=== PATIENT | male | born 1970 | race Caucasian/White ===

== ENCOUNTER 2017-06-11 19:35 | Inpatient (IN) | payer OTHER ==
[~2017-06-11] VITALS: Ht 152.4 cm; Wt 61.9 kg
[2017-06-11] MEDS ORDERED: CEFDINIR300 MG PO (19:47)
[2017-06-11] MEDS ORDERED: QVAR 80 MCG IN7.3 GM IH (19:47)
[2017-06-11] MEDS ORDERED: PROAIR HFA8.5 GM IH (19:47)
[2017-06-11] MEDS ORDERED: MUCINEX D ER T1 EACH PO (19:48)
[2017-06-11 20:25] LABS: BASOPHIL COUNT 0.1 K/uL (0-0.1); EOSINOPHIL (%) 0.9 % (0-5); EOSINOPHIL COUNT 0.1 K/uL (0-0.3); HEMATOCRIT 49.6 % (38.0-50.0); IMMATURE GRANULOCYTE (%) 0.6 % (0.0-0.7); IMMATURE GRANULOCYTE COUNT 0.1 K/uL; LYMPHOCYTE COUNT 1.2 K/uL (1.0-2.8); MCH 28.9 PG (29.0-34.0); MCHC 33.3 G/DL (30.0-36.0); MCV 86.9 FL (86-99); MEAN PLAT.VOLUME 9.9 uM^3 (9.0-12.4); MONOCYTE (%) 7.5 % (3-12); MONOCYTE COUNT 0.9 K/uL (0-0.8); NEUTROPHIL (%) 80.5 % (45-76); PLATELET COUNT 351 K/uL (156-360); RBC DIS.WIDTH-CV 12.6 % (11.8-14.6); RBC DIS.WIDTH-SD 39.6 % (39-53); RED BLOOD COUNT 5.71 M/uL (4.00-5.50); WHITE BLOOD COUNT 12.4 K/uL (4.1-10.2)
[2017-06-11 20:33] LABS: CHLORIDE 104 mEq/L (99-109); SODIUM 141 mEq/L (136-147)
[2017-06-11 20:35] LABS: GLUCOSE 111 mg/dL (70-99)
[2017-06-11 20:36] LABS: ANION GAP 15 MEQ/L (2-14)
[2017-06-11 20:37] LABS: TOTAL BILIRUBIN 0.2 mg/dL (0.0-1.0)
[2017-06-11 20:38] LABS: ALKALINE PHOSPHATASE 90 IU/L (3-129)
[2017-06-11 20:39] LABS: GFR ESTIMATE (CALCULATED) > 59 mL/min/
[2017-06-11 20:40] LABS: UREA NITROGEN (BUN) 18 mg/dL (9-23)
[2017-06-11 21:35] LABS: ADD MIUA? YES; BILIRUBIN NEGATIVE; BLOOD SMALL; COLOR YELLOW ((YELLOW)); GLUCOSE (STRIP) NEGATIVE; KETONES 5; LEUKOCYTES NEGATIVE; NITRITE NEGATIVE; PROTEIN (STRIP) 100; SPECIFIC GRAVITY 1.032 (1.000-1.030); UROBILINOGEN 0.2 MG/DL (0.2-1.0)
[2017-06-11 21:40] LABS: BACTERIA NONE SEEN /HPF; EPITHELIAL CELLS NONE SEEN /HPF; MUCUS 2+ /LPF; UCUL ADDED? NO; WHITE BLOOD CELLS 0-5 /HPF (0-5)
[2017-06-12 00:16] LABS: INFLUENZA A VIRAL ANTIGEN NEGATIVE; INFLUENZA B VIRAL ANTIGEN NEGATIVE
[2017-06-12] MEDS ORDERED: LIPITOR40 MG PO (01:22)
[2017-06-12] MEDS ORDERED: ADVIL200 M1 PO (01:24)
[2017-06-12] MEDS ORDERED: SALINE NOSE SPR45 M1 BOTH NARES (01:26)
[2017-06-12] MEDS ORDERED: EXCEDRIN MIGRA1 EAC3 PO (01:31)
[2017-06-12 04:00] VITALS: BP 135/79
[2017-06-12 07:48] VITALS: BP 134/78
[2017-06-12 09:26] LABS: ANION GAP 11 MEQ/L (2-14); CHLORIDE 108 MEQ/L (99-109); POTASSIUM 3.9 MEQ/L (3.7-5.4); SAMPLE HEMOLYSIS CHECK 0; SAMPLE ICTERIC CHECK 0; SAMPLE LIPEMIA CHECK 0; SODIUM 140 MEQ/L (136-147)
[2017-06-12 09:31] LABS: GFR ESTIMATE (CALCULATED) > 59 mL/min/; GLUCOSE 97 mg/dL (70-99); UREA NITROGEN (BUN) 13 mg/dL (9-23)
[2017-06-12 09:54] LABS: HEMATOCRIT 38.4 % (38.0-50.0); MCH 29.7 PG (29.0-34.0); MCHC 33.6 G/DL (30.0-36.0); MCV 88.5 FL (86-99); MEAN PLAT.VOLUME 10.5 uM^3 (9.0-12.4); PLATELET COUNT 276 K/uL (156-360); RBC DIS.WIDTH-CV 12.8 % (11.8-14.6); RBC DIS.WIDTH-SD 41.5 % (39-53); WHITE BLOOD COUNT 10.9 K/uL (4.1-10.2)
[2017-06-12 10:05] LABS: RED BLOOD COUNT 4.34 M/uL (4.00-5.50)
[2017-06-12 11:58] VITALS: BP 141/97
[2017-06-12 15:47] VITALS: BP 131/91
[2017-06-12 18:57] LABS: APPEARANCE CLEAR/COLORLESS; RED CELL AREA COUNTED 8; RED CELL COUNT 4 /MM^3 (0-1); RED CELL DILUTION 1; WHITE CELL RAW COUNT 263
[2017-06-12 18:58] LABS: WBC AREA COUNTED 8; WBC DILUTION 1; WHITE CELL COUNT 329 /MM^3 (0-5)
[2017-06-12 19:03] LABS: CSF EOSINOPHILS 1 % (0-25); MONO RAW COUNT 98; MONONUCLEAR WBC'S 98 % (50-90); POLY RAW COUNT 1; POLYNUCLEAR WBC'S 1 % (0-3)
[2017-06-12 19:49] VITALS: BP 143/82
[2017-06-13 00:08] VITALS: BP 121/70
[2017-06-13 03:27] VITALS: BP 141/86
[2017-06-13 05:35] LABS: HEMATOCRIT 37.5 % (38.0-50.0); MCH 28.9 PG (29.0-34.0); MCHC 32.8 G/DL (30.0-36.0); MEAN PLAT.VOLUME 10.1 uM^3 (9.0-12.4); PLATELET COUNT 258 K/uL (156-360); RBC DIS.WIDTH-CV 12.5 % (11.8-14.6); RBC DIS.WIDTH-SD 40.6 % (39-53); RED BLOOD COUNT 4.26 M/uL (4.00-5.50); WHITE BLOOD COUNT 12.8 K/uL (4.1-10.2)
[2017-06-13 06:01] LABS: ANION GAP 9 MEQ/L (2-14); CHLORIDE 104 MEQ/L (99-109); GFR ESTIMATE (CALCULATED) > 59 mL/min/; GLUCOSE 109 mg/dL (70-99); POTASSIUM 3.3 MEQ/L (3.7-5.4); SAMPLE HEMOLYSIS CHECK 0; SAMPLE ICTERIC CHECK 0; SAMPLE LIPEMIA CHECK 0; SODIUM 136 MEQ/L (136-147); UREA NITROGEN (BUN) 8 mg/dL (9-23)
[2017-06-13 08:00] VITALS: BP 154/93
[2017-06-13 12:01] VITALS: BP 126/64
[2017-06-13 15:57] VITALS: BP 128/70
[2017-06-13 19:58] VITALS: BP 14/78; BP 140/78
[2017-06-14] VITALS (7 sets, daily range): BP systolic 118–160; BP diastolic 74–85
[2017-06-14 05:19] LABS: HEMATOCRIT 38.1 % (38.0-50.0); MCH 28.4 PG (29.0-34.0); MCHC 32.5 G/DL (30.0-36.0); MCV 87.2 FL (86-99); MEAN PLAT.VOLUME 10.2 uM^3 (9.0-12.4); PLATELET COUNT 281 K/uL (156-360); RBC DIS.WIDTH-CV 12.5 % (11.8-14.6); RBC DIS.WIDTH-SD 40.1 % (39-53); RED BLOOD COUNT 4.37 M/uL (4.00-5.50); WHITE BLOOD COUNT 11.8 K/uL (4.1-10.2)
[2017-06-14 05:46] LABS: ANION GAP 11 MEQ/L (2-14); CHLORIDE 104 MEQ/L (99-109); GFR ESTIMATE (CALCULATED) > 59 mL/min/; GLUCOSE 95 mg/dL (70-99); POTASSIUM 3.2 MEQ/L (3.7-5.4); SAMPLE HEMOLYSIS CHECK 0; SAMPLE ICTERIC CHECK 0; SAMPLE LIPEMIA CHECK 0; SODIUM 137 MEQ/L (136-147); UREA NITROGEN (BUN) 7 mg/dL (9-23)
[2017-06-14 14:42] LABS: MAGNESIUM 1.9 mg/dl (1.3-2.7)
[2017-06-15 04:45] VITALS: BP 131/81
[2017-06-15 06:07] LABS: HEMATOCRIT 40.7 % (38.0-50.0); MCH 28.8 PG (29.0-34.0); MCHC 32.7 G/DL (30.0-36.0); MCV 88.1 FL (86-99); MEAN PLAT.VOLUME 10.6 uM^3 (9.0-12.4); PLATELET COUNT 309 K/uL (156-360); RBC DIS.WIDTH-CV 12.7 % (11.8-14.6); RBC DIS.WIDTH-SD 40.9 % (39-53); RED BLOOD COUNT 4.62 M/uL (4.00-5.50)
[2017-06-15 06:22] LABS: ANION GAP 10 MEQ/L (2-14); CHLORIDE 104 MEQ/L (99-109); GFR ESTIMATE (CALCULATED) > 59 mL/min/; GLUCOSE 91 mg/dL (70-99); POTASSIUM 3.4 MEQ/L (3.7-5.4); SAMPLE HEMOLYSIS CHECK 0; SAMPLE ICTERIC CHECK 0; SAMPLE LIPEMIA CHECK 0; SODIUM 138 MEQ/L (136-147); UREA NITROGEN (BUN) 9 mg/dL (9-23)
[2017-06-15 08:09] VITALS: BP 132/86
[2017-06-15 11:44] VITALS: BP 151/80
[2017-06-15 15:59] VITALS: BP 156/78
[2017-06-15 19:56] VITALS: BP 147/80
[2017-06-15 23:23] VITALS: BP 137/85
[2017-06-16 04:59] VITALS: BP 114/79
[2017-06-16 08:20] VITALS: BP 160/81
[2017-06-16 11:47] VITALS: BP 126/80
== END 2017-06-16 13:23 | disposition home or self-care (01) | DRG 96 ==
LOC: EME → EDBD 19:35 → EME 19:35 → EDOF 06-12 02:34 → 3EAST 06-12 02:34 → ENRESERV 06-12 02:36 → 3EAST 06-12 03:40
PROVIDERS: Emergency Medicine; Internal Medicine; Physician Assistant
PROC: 00JU3ZZ Inspection of Spinal Canal, Percutaneous Approach (ICD-10-PCS; principal; 2017-06-12)
PROC: 009U3ZX Drainage of Spinal Canal, Percutaneous Approach, Diagnostic (ICD-10-PCS; principal; 2017-06-12)
DX: G00.1 Pneumococcal meningitis (principal); E87.6 Hypokalemia; I10 Essential (primary) hypertension; J45.20 Mild intermittent asthma, uncomplicated; M54.9 Dorsalgia, unspecified; E78.2 Mixed hyperlipidemia; R00.0 Tachycardia, unspecified; R11.12 Projectile vomiting; Z87.891 Personal history of nicotine dependence
CPT/HCPCS: 70450; 71020; 74176; 77003; 80048; 80053; 80202; 81003; 82945; 83605; 83735; 84157; 85025; 85027; 87040; 87070; 87205; 87502; 88108; 89051; 90686; 94640; 94640 76; 99202; 99281; 99285; C1752; J0133; J0290; J0696; J1650; J1885; J2405; J2765; J3010; J3370; J7030; J7042; J7050

== ENCOUNTER → 2017-10-20 | Outpatient (CLI) | payer OTHER ==
[~2017-10-20] MED LIST: ADVIL200 M1 PO; CEFDINIR300 MG PO; EXCEDRIN MIGRA1 EAC3 PO; LIPITOR40 MG PO; MUCINEX D ER T1 EACH PO; PROAIR HFA8.5 GM IH; QVAR 80 MCG IN7.3 GM IH; SALINE NOSE SPR45 M1 BOTH NARES
== END | disposition home or self-care (01) ==
LOC: NUC 09:52
DX: R10.13 Epigastric pain (principal); R11.2 Nausea with vomiting, unspecified
CPT/HCPCS: 78227; A9537